=== PATIENT | female | born 1960 | race American Indian/Alaskan Native ===

== ENCOUNTER 2016-09-05 05:24 | Emergency (ER) | payer MEDICAID, OTHER ==
[2016-09-05 05:30] VITALS: BP 136/99
--- NOTE | 2016-09-05 05:35 | EDM.PDOC ---
ED HISTORY OF PRESENT ILLNESS - General Chief Complaint: Chest Pain Stated Complaint: IN BY AMBULANCE Time Seen by Provider: 09/05/16 05:25 Source of Information: Reports: Patient History Limitations: Reports: No limitations - History of Present Illness INITIAL COMMENTS - FREE TEXT/NARRATIVE: This 56 yo female patient was brought to the ED by [facility] due to chest pain. The patient reports that she woke up at about 0330 and had substernal chest pain. The patient reports her pain is "a sharp, dull pain in the middle of her chest. " The patient reports her pain is mostly gone at this time. The patient reports a history of htn and fibromyalgia. The patient did not take anything for her pain. EMS reports the patient was given aspirin (324 mg) and 1 dose of nitro. The patient now reports her pain is gone. 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, Nitroglycerin - Related Data Allergies/ADRs: Allergies Allergy/AdvReac Type Severity Reaction Status Date / Time glucosamine Allergy Cannot Verified 09/05/16 05:34 Remember tramadol Allergy Cannot Verified 09/05/16 05:34 Remember Home Meds: Home Meds Albuterol [Proventil HFA] 2 puff INH Q6HR PRN 10/21/13 [History] Fluticasone/Salmeterol [Advair 500-50] 1 puff INH BID 10/21/13 [History] Lisinopril 10 mg PO DAILY 10/21/13 [History] Omeprazole 20 mg PO DAILY 10/21/13 [History] Tiotropium [Spiriva] 1 puff INH DAILY 10/21/13 [History] Social & Family History - Tobacco Use Years of Tobacco use: 10 - Alcohol Use Days Per Week of Alcohol Use: 0 - Recreational Drug Use Recreational Drug Use: No Drug Use in Last 12 Months: No ED ROS GENERAL - Review of Systems Review Of Systems: ROS reveals no pertinent complaints other than HPI. ED EXAM, GENERAL - Physical Exam Exam: See Below Exam Limited By: No limitations General Appearance: alert, WD/WN, anxious, mild distress, obese Eye Exam: bilateral eye: EOMI, normal inspection, PERRL Ears: normal external exam, normal canal, hearing grossly normal, normal TMs Nose: normal inspection, normal mucosa, no blood Throat/Mouth: Normal inspection, Normal lips, Normal teeth, Normal gums, Normal oropharynx, Normal voice, No airway compromise Head: atraumatic, normocephalic Neck: normal inspection, supple, non-tender, full range of motion Respiratory/Chest: no respiratory distress, lungs clear, normal breath sounds, no accessory muscle use, other ([facility] patient reports generalized chest tenderness , but reports her fibromyalgia causes chronic chest pains. ) Cardiovascular: normal peripheral pulses, regular rate, rhythm, no edema, no gallop, no JVD, no murmur, no rub GI/Abdominal: normal bowel sounds, soft, non tender, no organomegaly, no distention, no abnormal bruit, no mass (Female) Exam: Deferred Rectal (Female) Exam: Deferred Back Exam: normal inspection, full range of motion, NT Extremities: normal inspection, normal range of motion, non-tender, normal capillary refill, no pedal edema Neurological: alert, oriented, CN II-XII intact, normal cognition, normal gait, normal reflexes, no motor/sensory deficits Psychiatric: anxious Skin Exam: Warm, Dry, Intact, Normal color, No rash Lymphatic: no adenopathy Course - Vital Signs Last Recorded V/S: Last Vital Signs Temp 35.5 C 09/05/16 05:24 Pulse 78 09/05/16 05:24 Resp 19 09/05/16 05:24 BP 136/99 H 09/05/16 05:24 Pulse Ox 99 09/05/16 05:24 - Orders/Labs/Meds Orders: Active Orders 24 hr Category Date Time Status EKG Documentation Completion [RC] URGENT Care 09/05/16 05:24 Active Labs: Laboratory Tests 09/05/16 09/05/16 09/05/16 Range/Units 05:35 05:35 05:40 WBC 9.8 (5.0-10.0) 10^3/uL RBC 4.68 (4.2-5.4) 10^6/uL Hgb 14.3 (12.0-16.0) g/dL Hct 43.2 (37.0-47.0) % MCV 92.3 (80-100) fL MCH 30.6 (27.0-34.0) pg MCHC 33.1 (33.0-35.0) g/dL Plt Count 373 (150-450) 10^3/uL Neut % (Auto) 68.3 (42.2-75.2) % Lymph % (Auto) 22.8 (20.5-50.1) % [place] % (Auto) 7.3 (2-8) % Eos % (Auto) 1.4 (1.0-3.0) % Baso % (Auto) 0.2 (0.0-1.0) % Sodium 138 (135-145) mmol/L Potassium 4.2 (3.6-5.0) mmol/L Chloride 105 (101-111) mmol/L Carbon Dioxide 23.0 (21.0-31.0) mmol/L Anion Gap 14.2 BUN 8 (7-18) mg/dL Creatinine 0.7 (0.6-1.3) mg/dL Est Cr Clr Drug Dosing 80.75 mL/min Estimated GFR (MDRD) > 60 BUN/Creatinine Ratio 11.42 Glucose 112 H (74-105) mg/dL Calcium 9.1 (8.4-10.2) mg/dl Total Bilirubin 0.4 (0.2-1.0) mg/dL AST 15 (10-42) IU/L ALT 12 (10-60) IU/L Alkaline Phosphatase 125 H (42-121) IU/L Troponin I < 0.02 (0.00-0.02) ng/ml Total Protein 7.4 (6.7-8.2) g/dl Albumin 4.0 (3.2-5.5) g/dl Globulin 3.4 Albumin/Globulin Ratio 1.18 Urine Color (YELLOW) Urine Appearance (CLEAR) Urine pH (5.0-9.0) Ur Specific [place] (1.005-1.030) Urine Protein (NEGATIVE) Urine Glucose (UA) (NEGATIVE) Urine Ketones (NEGATIVE) Urine Occult Blood (NEGATIVE) Urine Nitrite (NEGATIVE) Urine Bilirubin (NEGATIVE) Urine Urobilinogen (0.2-1.0) mg/dL Ur Leukocyte Esterase (NEGATIVE) Urine RBC /HPF Urine WBC (0-5/HPF) /HPF Ur Epithelial Cells /HPF Urine Bacteria (0-FEW/HPF) /HPF Urine Other Urine Opiates Screen Negative (NEGATIVE) Ur Oxycodone Screen Negative (NEGATIVE) Urine Methadone Screen Negative (NEGATIVE) Ur Barbiturates Screen Negative (NEGATIVE) U Tricyclic Antidepress Positive H (NEGATIVE) Ur Phencyclidine Scrn Negative (NEGATIVE) Ur Amphetamine Screen Negative (NEGATIVE) U Methamphetamines Scrn Negative (NEGATIVE) Urine MDMA Screen Negative (NEGATIVE) U Benzodiazepines Scrn Negative (NEGATIVE) Urine Cocaine Screen Negative (NEGATIVE) U Marijuana (THC) Screen Positive H (NEGATIVE) 09/05/16 Range/Units 05:40 WBC (5.0-10.0) 10^3/uL RBC (4.2-5.4) 10^6/uL Hgb (12.0-16.0) g/dL Hct (37.0-47.0) % MCV (80-100) fL MCH (27.0-34.0) pg MCHC (33.0-35.0) g/dL Plt Count (150-450) 10^3/uL Neut % (Auto) (42.2-75.2) % Lymph % (Auto) (20.5-50.1) % [place] % (Auto) (2-8) % Eos % (Auto) (1.0-3.0) % Baso % (Auto) (0.0-1.0) % Sodium (135-145) mmol/L Potassium (3.6-5.0) mmol/L Chloride (101-111) mmol/L Carbon Dioxide (21.0-31.0) mmol/L Anion Gap BUN (7-18) mg/dL Creatinine (0.6-1.3) mg/dL Est Cr Clr Drug Dosing mL/min Estimated GFR (MDRD) BUN/Creatinine Ratio Glucose (74-105) mg/dL Calcium (8.4-10.2) mg/dl Total Bilirubin (0.2-1.0) mg/dL AST (10-42) IU/L ALT (10-60) IU/L Alkaline Phosphatase (42-121) IU/L Troponin I (0.00-0.02) ng/ml Total Protein (6.7-8.2) g/dl Albumin (3.2-5.5) g/dl Globulin Albumin/Globulin Ratio Urine Color Yellow (YELLOW) Urine Appearance Slightly cloudy (CLEAR) Urine pH 6.5 (5.0-9.0) Ur Specific [place] 1.020 (1.005-1.030) Urine Protein Negative (NEGATIVE) Urine Glucose (UA) Negative (NEGATIVE) Urine Ketones Negative (NEGATIVE) Urine Occult Blood Trace-intact H (NEGATIVE) Urine Nitrite Negative (NEGATIVE) Urine Bilirubin Negative (NEGATIVE) Urine Urobilinogen 0.2 (0.2-1.0) mg/dL Ur Leukocyte Esterase Trace H (NEGATIVE) Urine RBC 0-5 /HPF Urine WBC 5-10 H (0-5/HPF) /HPF Ur Epithelial Cells Many H /HPF Urine Bacteria Moderate H (0-FEW/HPF) /HPF Urine Other See note Urine Opiates Screen (NEGATIVE) Ur Oxycodone Screen (NEGATIVE) Urine Methadone Screen (NEGATIVE) Ur Barbiturates Screen (NEGATIVE) U Tricyclic Antidepress (NEGATIVE) Ur Phencyclidine Scrn (NEGATIVE) Ur Amphetamine Screen (NEGATIVE) U Methamphetamines Scrn (NEGATIVE) Urine MDMA Screen (NEGATIVE) U Benzodiazepines Scrn (NEGATIVE) Urine Cocaine Screen (NEGATIVE) U Marijuana (THC) Screen (NEGATIVE) Departure - Departure Time of Disposition: 06:08 Disposition: Home, Self-Care 01 Condition: fair Clinical Impression: Non-cardiac chest pain Instructions: Nonspecific Chest Pain, [id number] Forms: ED Department Discharge Care Plan Goals: The patient was advised of the examination, EKG and lab results during the visit. The patient was encouraged to continue to monitor her symptoms. If the patient has any additional symptoms or concerns, the patient should either follow-up with her primary care facility or return to the emergency department. - My Orders Last 24 Hours: My Active Orders 09/05/16 05:24 EKG Documentation Completion [RC] URGENT - Assessment/Plan Last 24 Hours: My Active Orders 09/05/16 05:24 EKG Documentation Completion [RC] URGENT
[2016-09-05 05:58] LABS: CHLORIDE,CL 105 mmol/L (101-111); SODIUM,NA 138 mmol/L (135-145)
--- NOTE | 2016-09-05 11:46 | EKG ---
09/05/2016 - RADHAMES RUBI - TIME OF EK hours. I reviewed the EKG and agree with the machine's reading. [facility] /[id number]
== END 2016-09-05 06:25 | disposition home or self-care (01) ==
LOC: DL.ED 05:24
DX: R07.89 Other chest pain (principal); Z88.5 Allergy status to narcotic agent; Z88.8 Allergy status to other drugs, medicaments and biological substances; Z79.899 Other long term (current) drug therapy
CPT/HCPCS: 36415; 80053; 80305; 81001; 84484; 85025; 93005; 99285

== ENCOUNTER 2017-07-10 06:51 | Day surgery (SDC) | payer MEDICAID ==
[~2017-07-10 06:51] MED LIST: Dextrose 5%-0.45% NaCl 1,000 ML IV SCH; Midazolam 1 MG/ML 2 ML SDV ONE; Sodium Chloride 0.9% 10 ML Syringe FLUSH PRN; fentaNYL 100 MCG/2 ML SDV ONE
[2017-07-10] MEDS ORDERED: fentaNYL 100 MCG/2 ML SDV IV ONE ×2 (06:52→08:12)
[2017-07-10] MEDS ORDERED: Midazolam 1 MG/ML 2 ML SDV IV ONE ×4 (06:52→08:14)
--- NOTE | 2017-07-10 08:53 | OR ---
DATE: 07/10/2017 PROCEDURE: Esophagogastroduodenoscopy, NBI, and multiple pinch biopsies. INSTRUMENT USED: GIF-H180 Olympus video colonoscope. PREMEDICATIONS: Fentanyl 100 mcg intravenous, Versed 2 mg intravenous. Nasal O2 cannula. The procedure was done under pulse oximetry, BP recording, and cardiac cath tech. INDICATION: The patient with known Gentile's esophagus. Esophagogastroduodenoscopy is performed for surveillance pass to presence of dysplasia as well as malignancy, endoscopic hemostasis therapy if needed. DESCRIPTION OF PROCEDURE: The scope was passed with ease. Adequate visualization of the esophagus was made from proximal to distal areas. No upper esophageal lesions identified. No distal esophageal stricture. No uphill or downhill esophageal varices. No Gemma-Aguilar tear. No evidence of erosive esophagitis by [place] criteria. No esophageal polyp or tumor mass identified. Parmele columnar epithelium was noted at around 36 cm distal to the oral verge. Four-quadrant biopsies were taken from the pink columnar epithelium at 36 and 38 cm distal to the oral verge, and sent for pathologic evidence of dysplasia. No proximal gastric varices noted. Gastric fundus examination by retroflexion showed no polypoid lesions. No gastric ulcer, malignant mass, or vascular ectasia identified. Duodenal bulb showed no ulcer. Visualized second part of the duodenum was unremarkable. No bleeding was noted from any of the visualized areas at the completion of examination. Photographs were taken of the duodenal bulb, gastric antrum, fundus, as well as distal esophagus, including NBI views. IMPRESSION: Gentile's esophagus. The patient tolerated the procedure well. [facility] /[id number]
--- NOTE | 2017-07-10 09:47 | LETTER ---
07/10/2017 Alex Lee MD [facility] [address] [place] [address] RE: RADHAMES PAEZ : [address] Lee: Ms. Radhames Paez had esophagogastroduodenoscopy done this morning and she tolerated the procedure well. I herewith send a copy of the endoscopy note and photographs for your review. Thank you. Sincerely, [facility] /[id number]
[2017-07-10 10:38] VITALS: BP 115/74
== END 2017-07-10 10:45 | disposition home or self-care (01) ==
LOC: DL.ENDO 06:51
PROVIDERS: ATTEND Internal Medicine Gastroenterology
DX: K22.70 Barrett's esophagus without dysplasia (principal); I10 Essential (primary) hypertension; K21.9 Gastro-esophageal reflux disease without esophagitis; E66.9 Obesity, unspecified; Z88.8 Allergy status to other drugs, medicaments and biological substances
CPT/HCPCS: 43239; J2250; J3010; J7042

== ENCOUNTER 2017-10-29 13:54 | Emergency (ER) | payer MEDICAID, OTHER ==
[2017-10-29 14:13] VITALS: BP 127/79
--- NOTE | 2017-10-29 14:36 | CR ---
CLINICAL HISTORY: 57-year-old female injured left ankle ("stepped in hole"). Pain. INTERPRETATION: Mild bimalleolar soft tissue swelling and small ankle joint effusion. No sign of acute left ankle fracture or disruption of the tibiotalar mortise joint symmetric. Large heel spur at the insertion plantar aponeurosis base of the os calcis. CONCLUSION: Ankle sprain. No fractures.
--- NOTE | 2017-10-29 14:37 | CR ---
CLINICAL HISTORY: 57-year-old female injured left foot ("stepped in hole"). INTERPRETATION: Ankle joint effusion but no sign of left foot fracture or dislocation (bipartite sesamoid beneath the head of the first metatarsal). No foreign bodies. Large heel spur at the insertion plantar aponeurosis base of the os calcis.
--- NOTE | 2017-10-29 15:27 | EDM.PDOC ---
ED HPI GENERAL MEDICAL PROBLEM - General Chief Complaint: Lower Extremity Injury/Pain Stated Complaint: IN BY [facility] Time Seen by Provider: 10/29/17 15:21 Source of Information: Reports: Patient History Limitations: Reports: No Limitations - History of Present Illness INITIAL COMMENTS - FREE TEXT/NARRATIVE: This 57 yo female patient was brought to the ED by [facility] due to left ankle pain. The patient reports that she stepped in a hole and hurt her ankle. The patient reports she has not been able to walk on her foot since the incident. Onset: Today Duration: Minutes:, Constant Location: Reports: Lower Extremity, Left Quality: Reports: Ache, Sharp Severity: Moderate Improves with: Reports: None Worsens with: Reports: None Context: Reports: Activity Associated Symptoms: Reports: No Other Symptoms Left Ankle Pain Score (Numeric/FACES): 10 - Related Data Allergies Allergy/AdvReac Type Severity Reaction Status Date / Time glucosamine Allergy Other Verified 10/29/17 14:00 hydrocodone Allergy Hives Verified 10/29/17 14:00 tramadol Allergy Itching Verified 10/29/17 14:00 Home Meds: Home Meds Albuterol [Proventil HFA] 2 puff INH Q6HR PRN 10/21/13 [History] Lisinopril 10 mg PO DAILY 10/21/13 [History] Tiotropium [Spiriva] 1 puff INH DAILY 10/21/13 [History] Cetirizine [ZyrTEC] 10 mg PO DAILY 07/08/17 [History] Cyclobenzaprine [Flexeril] 10 mg PO DAILY 07/08/17 [History] Losartan Potassium 25 mg PO DAILY 07/08/17 [History] Mometasone/Formoterol [Dulera 200 MCG/5 MCG] 1 puff INH DAILY 07/08/17 [History] Olopatadine [Patanol 0.1% Ophth Soln] 1 drop EYEBOTH BID 07/08/17 [History] Pregabalin [Lyrica] 150 mg PO BEDTIME 07/08/17 [History] Pregabalin [Lyrica] 300 mg PO DAILY 07/08/17 [History] atorvaSTATin [Lipitor] 20 mg PO BEDTIME 07/08/17 [History] Pantoprazole [ProTONIX] 40 mg PO BID 02/09/18 [History] Past Medical History Cardiovascular History: Reports: High Cholesterol, Hypertension Respiratory History: Reports: Asthma Gastrointestinal History: Reports: Diverticulosis, GERD, Hemorrhoids, Other ( See Below) Other Gastrointestinal History: NAJERA'S ESOPHAGUS Genitourinary History: Reports: Renal Calculus 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 CHRONIC CERVICALGIA. MULTILEVEL FACET ARTHROPATHY CERVICAL. NUMBNESS AND TINGLING IN BILAT HANDS Neurological History: Reports: Concussion Psychiatric History: Reports: Anxiety, Depression Endocrine/Metabolic History: Reports: Obesity/BMI 30+ Hematologic History: Reports: None Immunologic History: Reports: None Oncologic (Cancer) History: Reports: None Dermatologic History: Reports: Psoriasis Other Dermatologic History: 07/2017 PATIENT REPORTS PSORASIS HEALED - Infectious Disease History Infectious Disease History: Reports: None - Past Surgical History Head Surgeries/Procedures: Reports: None HEENT Surgical History: Reports: Tonsillectomy Cardiovascular Surgical History: Reports: None Respiratory Surgical History: Reports: None GI Surgical History: Reports: Colonoscopy, EGD Female Surgical History: Reports: Other (See Below) Other Female Surgeries/Procedures: S/P REMOVAL OF KIDNEY STONE FROM LEFT KIDNEY, INCISIONAL Endocrine Surgical History: Reports: None Neurological Surgical History: Reports: None Musculoskeletal Surgical History: Reports: None Oncologic Surgical History: Reports: None Dermatological Surgical History: Reports: None Social & Family History - Tobacco Use Smoking Status *Q: Current Every Day Smoker Years of Tobacco use: 6 Packs/Tins Daily: 0.2 - Caffeine Use Caffeine Use: Reports: Coffee, Soda, Tea Other Caffeine Use: AVERAGE OF 4 CUPS OF COFFEE - Recreational Drug Use Recreational Drug Use: No Review of Systems - Review of Systems Review Of Systems: ROS reveals no pertinent complaints other than HPI. ED EXAM, GENERAL - Physical Exam Exam: See Below Exam Limited By: No Limitations General Appearance: Alert, WD/WN, Mild Distress, Obese Eye Exam: Bilateral Eye: EOMI, Normal Inspection, PERRL Ears: Normal External Exam, Normal Canal, Hearing Grossly Normal, Normal TMs Nose: Normal Inspection, Normal Mucosa, No Blood Throat/Mouth: Normal Inspection, Normal Lips, Normal Teeth, Normal Gums, Normal Oropharynx, Normal Voice, No Airway Compromise Head: Atraumatic, Normocephalic Neck: Normal Inspection, Supple, Non-Tender, Full Range of Motion Respiratory/Chest: No Respiratory Distress, Lungs Clear, Normal Breath Sounds, No Accessory Muscle Use, Chest Non-Tender Cardiovascular: Normal Peripheral Pulses, Regular Rate, Rhythm, No Edema, No Gallop, No JVD, No Murmur, No Rub GI/Abdominal: Normal Bowel Sounds, Soft, Non-Tender, No Organomegaly, No Distention, No Abnormal Bruit, No Mass (Female) Exam: Deferred Rectal (Female) Exam: Deferred Extremities: Leg Pain (left lateral ankle and foot tenderness) Neurological: Alert, Oriented, CN II-XII Intact, Normal Cognition, Normal Gait, Normal Reflexes, No Motor/Sensory Deficits Psychiatric: Normal Affect, Normal Mood Skin Exam: Warm, Dry, Intact, Normal Color, No Rash Lymphatic: No Adenopathy Course - Vital Signs Last Recorded V/S: Last Vital Signs Temp 36.6 C 10/29/17 14:11 Pulse 83 10/29/17 14:11 Resp 16 10/29/17 14:11 BP 127/79 10/29/17 14:11 Pulse Ox 94 L 10/29/17 14:11 - Orders/Labs/Meds Orders: Active Orders 24 hr Category Date Time Status DME for Discharge [COMM] Urgent Oth 10/29/17 15:27 Ordered Departure - Departure Time of Disposition: 15:28 Disposition: Home, Self-Care 01 Condition: Fair Clinical Impression: Left ankle sprain Qualifiers: Encounter type: initial encounter Involved ligament of ankle: unspecified ligament Qualified Code(s): S93.402A - Sprain of unspecified ligament of left ankle, initial encounter - Discharge Information Instructions: Ankle Sprain, [id number] Forms: ED Department Discharge Care Plan Goals: The patient was advised of the examination and x-ray results during the visit. The patient was placed in a walking boot and given a set of crutches to help her ambulate. The patient was encouraged to rest, ice and elevate the area of pain. If the patient has any additional symptoms or concerns, the patient should follow-up with her primary care facility or return to the emergency department. - My Orders Last 24 Hours: My Active Orders 10/29/17 15:27 DME for Discharge [COMM] Urgent - Assessment/Plan Last 24 Hours: My Active Orders 05/31/18 15:27 DME for Discharge [COMM] Urgent
== END 2017-10-29 15:40 | disposition home or self-care (01) ==
LOC: DL.ED 13:54
DX: S93.402A Sprain of unspecified ligament of left ankle, initial encounter (principal); I10 Essential (primary) hypertension; E66.9 Obesity, unspecified; F17.210 Nicotine dependence, cigarettes, uncomplicated; Z88.8 Allergy status to other drugs, medicaments and biological substances; Z79.899 Other long term (current) drug therapy; X50.9XXA Other and unspecified overexertion or strenuous movements or postures, initial encounter
CPT/HCPCS: 73610-LT; 73630-LT; 99284

== ENCOUNTER 2017-11-06 15:42 | Emergency (ER) | payer MEDICAID, OTHER ==
[2017-11-06 16:10] VITALS: BP 107/53
--- NOTE | 2017-11-06 16:31 | EDM.PDOC ---
ED HPI GENERAL MEDICAL PROBLEM - General Chief Complaint: Back Pain or Injury Stated Complaint: BACK PAIN Time Seen by Provider: 11/06/17 16:31 Source of Information: Reports: Patient, EMS, Family, Old Records, RN, RN Notes Reviewed History Limitations: Reports: No Limitations - History of Present Illness INITIAL COMMENTS - FREE TEXT/NARRATIVE: Arrives from home by ambulance with c/o low back pain radiating down right leg to the knee. Pt states that about 1 week ago she had 2 ground level falls, and since that time her back pain has worsened. Hx of chronic neck, and some back pains per pt. Today she was seen at [facility] and received Toradol and Vistaril IM injections which provided no relief at all. Pt denies saddle area numbness, loss of bowel or bladder control, or motor weakness. Onset: Gradual Duration: Constant, Getting Worse Location: Reports: Back, Lower Extremity, Right Quality: Reports: Ache, Sharp Severity: Severe Improves with: Reports: Immobilization (sitting upright) Worsens with: Reports: Movement Associated Symptoms: Reports: No Other Symptoms Treatments AUDIT TECH: Reports: Other Medication(s) Back Pain Score (Numeric/FACES): 10 - Related Data Allergies Allergy/AdvReac Type Severity Reaction Status Date / Time glucosamine Allergy Other Verified 10/29/17 14:00 hydrocodone Allergy Hives Verified 10/29/17 14:00 tramadol Allergy Itching Verified 10/29/17 14:00 Home Meds: Home Meds Albuterol [Proventil HFA] 2 puff INH Q6HR PRN 10/21/13 [History] Lisinopril 10 mg PO DAILY 10/21/13 [History] Tiotropium [Spiriva] 1 puff INH DAILY 10/21/13 [History] Cetirizine [ZyrTEC] 10 mg PO DAILY 07/08/17 [History] Cyclobenzaprine [Flexeril] 10 mg PO DAILY 07/08/17 [History] Losartan Potassium 25 mg PO DAILY 07/08/17 [History] Mometasone/Formoterol [Dulera 200 MCG/5 MCG] 1 puff INH DAILY 07/08/17 [History] Olopatadine [Patanol 0.1% Ophth Soln] 1 drop EYEBOTH BID 07/08/17 [History] Pregabalin [Lyrica] 150 mg PO BEDTIME 07/08/17 [History] Pregabalin [Lyrica] 300 mg PO DAILY 07/08/17 [History] atorvaSTATin [Lipitor] 20 mg PO BEDTIME 07/08/17 [History] Pantoprazole [ProTONIX] 40 mg PO BID 07/10/17 [History] Past Medical History Cardiovascular History: Reports: High Cholesterol, Hypertension Respiratory History: Reports: Asthma Gastrointestinal History: Reports: Diverticulosis, GERD, Hemorrhoids, Other ( See Below) Other Gastrointestinal History: NAJERA'S ESOPHAGUS Genitourinary History: Reports: Renal Calculus BATTER OUT History: Reports: Musculoskeletal History: Reports: Arthritis, Fibromyalgia, Neck Pain, Chronic Other Musculoskeletal History: HX OF BRACHIAL NEURITIS OR RADICULITIS. CHRONIC CERVICALGIA. MULTILEVEL FACET ARTHROPATHY CERVICAL. NUMBNESS AND TINGLING IN BILAT HANDS Neurological History: Reports: Concussion Psychiatric History: Reports: Anxiety, Depression Endocrine/Metabolic History: Reports: Obesity/BMI 30+ Hematologic History: Reports: None Immunologic History: Reports: None Oncologic (Cancer) History: Reports: None Dermatologic History: Reports: Psoriasis Other Dermatologic History: 07/2017 PATIENT REPORTS PSORASIS HEALED - Infectious Disease History Infectious Disease History: Reports: None - Past Surgical History Head Surgeries/Procedures: Reports: None HEENT Surgical History: Reports: Tonsillectomy Cardiovascular Surgical History: Reports: None Respiratory Surgical History: Reports: None GI Surgical History: Reports: Colonoscopy, EGD Female Surgical History: Reports: Other (See Below) Other Female Surgeries/Procedures: S/P REMOVAL OF KIDNEY STONE FROM LEFT KIDNEY, INCISIONAL Endocrine Surgical History: Reports: None Neurological Surgical History: Reports: None Musculoskeletal Surgical History: Reports: None Other Musculoskeletal Surgeries/Procedures:: on arrival pt wears a splint on the right wrist and a walking boot on the left foot Oncologic Surgical History: Reports: None Dermatological Surgical History: Reports: None Social & Family History - Tobacco Use Smoking Status *Q: Current Every Day Smoker Years of Tobacco use: 20 Packs/Tins Daily: 0.5 - Caffeine Use Caffeine Use: Reports: Coffee, Soda, Tea Other Caffeine Use: AVERAGE OF 4 CUPS OF COFFEE - Recreational Drug Use Recreational Drug Use: No - Living Situation & Occupation Living situation: Reports: with Family ED ROS GENERAL - Review of Systems Review Of Systems: ROS reveals no pertinent complaints other than HPI. ED EXAM,LOWER BACK PAIN/INJURY - Physical Exam Exam: See Below Exam Limited By: No Limitations General Appearance: Alert, WD/WN, No Apparent Distress Throat/Mouth: Normal Voice Head: Atraumatic, Normocephalic Neck: Normal Inspection, Full Range of Motion Respiratory/Chest: No Respiratory Distress, No Accessory Muscle Use, Decreased Breath Sounds (course breath sounds) Cardiovascular: Regular Rate, Rhythm, No Edema GI/Abdominal: Normal Bowel Sounds, Soft, Non-Tender, No Distention, No Abnormal Bruit. No: Guarding, Rigid, Rebound (Female) Exam: Deferred Rectal (Female) Exam: Deferred Back Exam: Decreased Range of Motion (lumbar, L/S), Muscle Spasm, Paraspinal Tenderness. No: CVA Tenderness (L), CVA Tenderness (R), Vertebral Tenderness Extremities: Normal Inspection, Normal Range of Motion, Non-Tender, No Pedal Edema, Normal Capillary Refill Neurological: Alert, Normal Mood/Affect, Normal Dorsiflexion, CN II-XII Intact, Normal Plantar Flexion, No Motor/Sensory Deficits, Oriented x 3 Psychiatric: Normal Affect, Normal Mood Skin Exam: Warm, Dry, Intact, Normal Color, No Rash Course - Vital Signs Last Recorded V/S: Last Vital Signs Temp 36.4 C 11/06/17 16:09 Pulse 76 11/06/17 16:09 Resp 16 11/06/17 16:09 BP 107/53 L 11/06/17 16:09 Pulse Ox 94 L 11/06/17 16:09 - Orders/Labs/Meds Labs: Laboratory Tests 11/06/17 11/06/17 Range/Units 16:36 16:36 Urine Color Yellow (YELLOW) Urine Appearance Slightly cloudy (CLEAR) Urine pH 8.5 (5.0-9.0) Ur Specific [place] 1.015 (1.005-1.030) Urine Protein Negative (NEGATIVE) Urine Glucose (UA) Negative (NEGATIVE) Urine Ketones Negative (NEGATIVE) Urine Occult Blood Negative (NEGATIVE) Urine Nitrite Negative (NEGATIVE) Urine Bilirubin Negative (NEGATIVE) Urine Urobilinogen 0.2 (0.2-1.0) mg/dL Ur Leukocyte Esterase Negative (NEGATIVE) Urine RBC 0-5 /HPF Urine WBC 0-5 (0-5/HPF) /HPF Ur Epithelial Cells Rare /HPF Amorphous Sediment Few (0/HPF) /HPF Urine Bacteria Rare (0-FEW/HPF) /HPF Urine Mucus Few H /LPF Urine Opiates Screen Negative (NEGATIVE) Ur Oxycodone Screen Negative (NEGATIVE) Urine Methadone Screen Negative (NEGATIVE) Ur Barbiturates Screen Negative (NEGATIVE) U Tricyclic Antidepress Positive H (NEGATIVE) Ur Phencyclidine Scrn Negative (NEGATIVE) Ur Amphetamine Screen Negative (NEGATIVE) U Methamphetamines Scrn Negative (NEGATIVE) Urine MDMA Screen Negative (NEGATIVE) U Benzodiazepines Scrn Negative (NEGATIVE) Urine Cocaine Screen Negative (NEGATIVE) U Marijuana (THC) Screen Positive H (NEGATIVE) Meds: Medications Discontinued Medications Generic Name Dose Route Start Last Admin Trade Name Freq PRN Reason Stop Dose Admin Dexamethasone 8 mg 11/06/17 16:56 11/06/17 17:06 Dexamethasone IM 11/06/17 16:57 8 mg ONETIME ONE Administration Orphenadrine Citrate 60 mg 11/06/17 16:58 11/06/17 17:07 Norflex IM 11/06/17 16:59 60 mg ONETIME ONE Administration - Radiology Interpretation Free Text/Narrative:: [facility] Final Radiology Report Call: [phone] assistance Online chat: [email or web address] Name: RADHAMES RUBI Age: 57Years F Date: 11/06/2017 SSN: -- : 1960 Study: CT SPINE LUMBAR WO Requesting Physician: LILIAN MARINO Images: [id number] Addl Studies: Provided Clinical History: Contrast: Without Contrast Medium: Contrast Amount: Contrast Method: CONFIDENTIALITY STATEMENT This report is intended only for use by the referring physician, and only in accordance with law. If you received this in error, call [phone]. Page 1 of 1 EXAM: CT Lumbar Spine Without Intravenous Contrast CLINICAL HISTORY: 57 years old, female; Signs and symptoms; Other: Fall x2 with severe low back pain radiating to right knee--no loss of bowel or bladder TECHNIQUE: Axial computed tomography images of the lumbar spine without intravenous contrast. All CT scans at this facility use one or more dose reduction techniques, viz.: automated exposure control; ma/kV adjustment per patient size (including targeted exams where dose is matched to indication; i.e. head); or iterative reconstruction technique. Coronal and sagittal reformatted images were created and reviewed. COMPARISON: No relevant prior studies available. FINDINGS: Vertebrae: Vertebral body heights preserved. No acute fracture. Discs/spinal canal/neural foramina: There are mild degenerative changes in the lower lumbar spine. No spinal canal stenosis. Soft tissues: Unremarkable. IMPRESSION: No acute findings. Thank you for allowing us to participate in the care of your patient. Dictated and Authenticated by: Eduar Ferguson MD 11/06/2017 5:48 PM Central Time ([place] & [place]) Departure - Departure Time of Disposition: 18:12 Disposition: Home, Self-Care 01 Condition: Fair Clinical Impression: Right lumbar radiculopathy Acute low back pain Qualifiers: Back pain laterality: bilateral Sciatica presence: with sciatica Sciatica laterality: sciatica of right side Qualified Code(s): M54.41 - Lumbago with sciatica, right side - Discharge Information Instructions: Back Pain, Adult, [id number], Lumbosacral Radiculopathy Forms: ED Department Discharge Additional Instructions: Rx: Decadron (Dexamethasone) 4mg Rx: Norflex (Orphenadrine) 100mg Do not take your cyclobenzaprine while taking the Norflex. If your insurance will not cover Norflex, go ahead and take the cyclobenzaprine. Follow up in clinic next week for recheck by your doctor.
[2017-11-06] MEDS ORDERED: Dexamethasone 4 MG/ML SDV IM ONE (16:56)
== END 2017-11-06 18:45 | disposition home or self-care (01) ==
LOC: DL.ED 15:42
DX: M54.16 Radiculopathy, lumbar region (principal); M54.41 Lumbago with sciatica, right side; E78.00 Pure hypercholesterolemia, unspecified; I10 Essential (primary) hypertension; K21.9 Gastro-esophageal reflux disease without esophagitis; F17.210 Nicotine dependence, cigarettes, uncomplicated; Z88.8 Allergy status to other drugs, medicaments and biological substances; Z88.5 Allergy status to narcotic agent; Z79.899 Other long term (current) drug therapy
CPT/HCPCS: 72131; 80305; 81001; 96372; 99284; J1100; J2360

== ENCOUNTER 2021-06-15 09:20 | Inpatient (IN) | payer MEDICARE, MEDICAID ==
[2021-06-15] MEDS ORDERED: Acetaminophen 500 MG Tab PO ONE (09:48)
[2021-06-15 10:25] LABS: CORONAVIRUS COVID-19 NAA NEGATIVE (NEGATIVE)
[2021-06-15] MEDS ORDERED: cefTRIAXone 1 GM in Sodium Chloride 0.9% 50 ML IV ONE (10:33)
[2021-06-15 10:34] LABS: ANION GAP 14.2 mEq/L (7-13); CHLORIDE,CL 93 mmol/L (98-107); SODIUM,NA 133 mmol/L (136-145)
[2021-06-15] MEDS ORDERED: Albuterol/Ipratropium 3.0-0.5 MG/3 ML Neb Soln NEB ONE (10:37)
[2021-06-15] MEDS ORDERED: methylPREDNISolone Sodium Succinate 125 MG/2 ML SDV IVPUSH ONE (10:37)
[2021-06-15] MEDS ORDERED: Azithromycin 500 MG in Sodium Chloride 0.9% 250 ML IV ONE (10:37)
[2021-06-15] MEDS ORDERED: Polyethylene Glycol 3350 Powder 17 GM Packet PO PRN (13:45)
[2021-06-15] MEDS ORDERED: Ondansetron 4 MG/2 ML SDV IVPUSH PRN (13:45)
[2021-06-15] MEDS ORDERED: Bisacodyl 5 MG Tab PO PRN (13:45)
[2021-06-15] MEDS ORDERED: Metoprolol Tartrate 5 MG/5 ML SDV IVPUSH PRN (13:51)
[2021-06-15] MEDS ORDERED: hydrALAZINE 20 MG/ML SDV IVPUSH PRN (13:51)
[2021-06-15] MEDS ORDERED: Nicotine 21 MG/24 Hr Patch TRDERM PRN (13:51)
[2021-06-15] MEDS ORDERED: guaiFENesin/Dextromethorphan 100-10 MG/5 ML Soln 5 ML Cup PO ONE (13:51)
[2021-06-15] MEDS ORDERED: Albuterol 6.7 GM Inhaler INH PRN (13:52)
[2021-06-15] MEDS ORDERED: Magnesium Sulfate/Water 2 GM in Premix Bag 1 BAG IV ONE (14:06)
[2021-06-15] MEDS ORDERED: Potassium Chloride 10 MEQ Tab.ER PO ONE (14:06)
[2021-06-15] MEDS ORDERED: Oseltamivir 75 MG Cap PO ONE (14:06)
[2021-06-15] MEDS: Sodium Chloride 0.9% 1,000 ML IV SCH (16:39)
[2021-06-15] MEDS: methylPREDNISolone Sodium Succinate 125 MG/2 ML SDV IVPUSH SCH (18:56)
[2021-06-15] MEDS: Pantoprazole 40 MG Tab.CR PO SCH (20:10)
[2021-06-15] MEDS: atorvaSTATin 20 MG Tab PO SCH (20:10)
[2021-06-15] MEDS: Oseltamivir 30 MG Cap PO SCH (20:10)
[2021-06-15] MEDS: Albuterol/Ipratropium 3.0-0.5 MG/3 ML Neb Soln NEB PRN (20:13)
[2021-06-15] MEDS: Zolpidem 5 MG Tab PO PRN (20:19)
[2021-06-15] MEDS: Nystatin Topical Powder 30 GM Bottle TOP SCH (20:20)
[2021-06-15] MEDS ORDERED: Oseltamivir 75 MG Cap PO SCH (21:00)
[2021-06-16] MEDS: methylPREDNISolone Sodium Succinate 125 MG/2 ML SDV IVPUSH SCH ×3 (02:32→18:11)
[2021-06-16] MEDS: Pantoprazole 40 MG Tab.CR PO SCH ×2 (05:05→20:01)
[2021-06-16] MEDS: Sodium Chloride 0.9% 1,000 ML IV SCH (06:30)
[2021-06-16 06:47] LABS: ANION GAP 18.3 mEq/L (7-13); CHLORIDE,CL 97 mmol/L (98-107); SODIUM,NA 137 mmol/L (136-145)
[2021-06-16] MEDS ORDERED: Cyclobenzaprine 10 MG Tab PO SCH (09:00)
[2021-06-16] MEDS: Losartan 25 MG Tab PO SCH (09:28)
[2021-06-16] MEDS: Oseltamivir 30 MG Cap PO SCH ×2 (09:28→20:01)
[2021-06-16] MEDS: DULoxetine 30 MG Cap PO SCH (09:28)
[2021-06-16] MEDS: Tiotropium Inhaler 18 MCG Inhalation Powder Cap Kit of 5 INH SCH (09:29)
[2021-06-16] MEDS: Nystatin Topical Powder 30 GM Bottle TOP SCH ×3 (09:31→20:00)
[2021-06-16] MEDS: cefTRIAXone 1 GM in Sodium Chloride 0.9% 50 ML IV SCH (09:32)
[2021-06-16] MEDS: CETIRIZINE 10 MG PO SCH (09:35)
[2021-06-16] MEDS: Albuterol/Ipratropium 3.0-0.5 MG/3 ML Neb Soln NEB PRN ×2 (10:18→19:50)
[2021-06-16] MEDS: guaiFENesin/Dextromethorphan 100-10 MG/5 ML Soln 5 ML Cup PO PRN ×2 (10:36→13:59)
[2021-06-16] MEDS: Azithromycin 500 MG in Sodium Chloride 0.9% 250 ML IV SCH (11:21)
[2021-06-16] MEDS: Acetaminophen 325 MG Tab PO PRN (15:17)
[2021-06-16] MEDS: atorvaSTATin 20 MG Tab PO SCH (20:00)
[2021-06-16] MEDS: Cyclobenzaprine 10 MG Tab PO SCH (20:01)
[2021-06-16] MEDS: Codeine/guaiFENesin 10-100 MG/5 ML Syrup 5 ML Cup PO PRN (20:23)
[2021-06-16] MEDS: Zolpidem 5 MG Tab PO PRN (23:22)
[2021-06-17] MEDS: methylPREDNISolone Sodium Succinate 125 MG/2 ML SDV IVPUSH SCH ×2 (02:55→12:30)
[2021-06-17] MEDS: Pantoprazole 40 MG Tab.CR PO SCH ×2 (05:23→20:26)
[2021-06-17 06:59] LABS: ANION GAP 16.5 mEq/L (7-13); CHLORIDE,CL 103 mmol/L (98-107); SODIUM,NA 141 mmol/L (136-145)
[2021-06-17] MEDS: Codeine/guaiFENesin 10-100 MG/5 ML Syrup 5 ML Cup PO PRN ×3 (08:31→19:19)
[2021-06-17] MEDS: cefTRIAXone 1 GM in Sodium Chloride 0.9% 50 ML IV SCH (09:02)
[2021-06-17] MEDS: Oseltamivir 30 MG Cap PO SCH ×2 (09:05→20:26)
[2021-06-17] MEDS: DULoxetine 30 MG Cap PO SCH (09:06)
[2021-06-17] MEDS: Acetaminophen 325 MG Tab PO PRN ×2 (09:07→20:25)
[2021-06-17] MEDS: Losartan 25 MG Tab PO SCH (09:11)
[2021-06-17] MEDS: CETIRIZINE 10 MG PO SCH (09:13)
[2021-06-17] MEDS: Tiotropium Inhaler 18 MCG Inhalation Powder Cap Kit of 5 INH SCH (09:15)
[2021-06-17] MEDS: Nystatin Topical Powder 30 GM Bottle TOP SCH ×3 (09:16→20:32)
[2021-06-17] MEDS ORDERED: Bisacodyl 10 MG Supp RECTAL PRN (10:12)
[2021-06-17] MEDS ORDERED: Furosemide 20 MG/2 ML VIAL IVPUSH ONE (10:45)
[2021-06-17] MEDS: Azithromycin 500 MG in Sodium Chloride 0.9% 250 ML IV SCH (12:57)
[2021-06-17] MEDS: Albuterol/Ipratropium 3.0-0.5 MG/3 ML Neb Soln NEB PRN ×2 (14:17→19:06)
[2021-06-17] MEDS: Magnesium Hydroxide 400 MG/5 ML Susp 30 ML Cup PO PRN (16:33)
[2021-06-17] MEDS: Sodium Chloride 0.9% 10 ML Syringe FLUSH PRN (18:08)
[2021-06-17] MEDS: methylPREDNISolone Sodium Succinate 40 MG/1 ML SDV IVPUSH SCH (18:08)
[2021-06-17] MEDS: Docusate Sodium 100 MG Cap PO PRN (20:25)
[2021-06-17] MEDS: Cyclobenzaprine 10 MG Tab PO SCH (20:26)
[2021-06-17] MEDS: atorvaSTATin 20 MG Tab PO SCH (20:27)
[2021-06-17] MEDS: Zolpidem 5 MG Tab PO PRN (20:28)
[2021-06-18] MEDS: methylPREDNISolone Sodium Succinate 40 MG/1 ML SDV IVPUSH SCH ×3 (02:05→18:26)
[2021-06-18] MEDS: Pantoprazole 40 MG Tab.CR PO SCH ×2 (05:33→20:33)
[2021-06-18] MEDS: Albuterol/Ipratropium 3.0-0.5 MG/3 ML Neb Soln NEB PRN ×2 (05:33→08:11)
[2021-06-18] MEDS: Codeine/guaiFENesin 10-100 MG/5 ML Syrup 5 ML Cup PO PRN (05:42)
[2021-06-18 07:09] LABS: ANION GAP 15.5 mEq/L (7-13); CHLORIDE,CL 100 mmol/L (98-107); SODIUM,NA 141 mmol/L (136-145)
[2021-06-18] MEDS: Acetaminophen 325 MG Tab PO PRN (07:24)
[2021-06-18 08:21] LABS: O2 DELIVERY DEVICE NASAL CANNULA
[2021-06-18] MEDS: Losartan 25 MG Tab PO SCH (08:47)
[2021-06-18] MEDS: DULoxetine 30 MG Cap PO SCH (08:48)
[2021-06-18] MEDS: Oseltamivir 30 MG Cap PO SCH ×2 (08:48→20:34)
[2021-06-18] MEDS: Furosemide 20 MG/2 ML VIAL IVPUSH SCH ×2 (08:49→14:15)
[2021-06-18] MEDS: CETIRIZINE 10 MG PO SCH (08:53)
[2021-06-18] MEDS: Nystatin Topical Powder 30 GM Bottle TOP SCH ×3 (08:55→23:57)
[2021-06-18] MEDS: Tiotropium Inhaler 18 MCG Inhalation Powder Cap Kit of 5 INH SCH (09:05)
[2021-06-18] MEDS: cefTRIAXone 1 GM in Sodium Chloride 0.9% 50 ML IV SCH (10:46)
[2021-06-18] MEDS: Albuterol/Ipratropium 3.0-0.5 MG/3 ML Neb Soln NEB SCH ×4 (10:57→23:56)
[2021-06-18] MEDS: Enoxaparin 40 MG/0.4 ML Syringe SUBCUT SCH (10:57)
[2021-06-18] MEDS: Azithromycin 500 MG in Sodium Chloride 0.9% 250 ML IV SCH (11:31)
[2021-06-18] MEDS: ALPRAZolam 0.5 MG Tab PO PRN (11:37)
[2021-06-18 15:13] LABS: PCO2 ARTERIAL 51 mmHg (35-48)
[2021-06-18 15:14] LABS: ALLEN TEST POSITIVE
[2021-06-18 15:21] LABS: PO2 ARTERIAL 42 mmHg (83-108)
[2021-06-18 18:53] LABS: O2 DELIVERY DEVICE HI FLOW NASAL CANNU
[2021-06-18 19:02] LABS: PCO2 ARTERIAL 47 mmHg (35-45)
[2021-06-18 19:03] LABS: ALLEN TEST POSITIVE; BASE EXCESS ARTERIAL 6 mmol/L ((-2)-(+3)); BICARBONATE,ARTERIAL 30.7 mmol/L (22-26); O2 FLOW RATE 40; O2 SATURATION ARTERIAL 97 % (95-100); PO2 ARTERIAL 86 mmHg (70-100)
[2021-06-18] MEDS: Cyclobenzaprine 10 MG Tab PO SCH (20:33)
[2021-06-18] MEDS: Zolpidem 5 MG Tab PO PRN (20:34)
[2021-06-18] MEDS: atorvaSTATin 20 MG Tab PO SCH (20:34)
[2021-06-19] MEDS: Budesonide 0.5 MG/2 ML Neb Susp NEB SCH ×3 (00:31→18:33)
[2021-06-19] MEDS: methylPREDNISolone Sodium Succinate 40 MG/1 ML SDV IVPUSH SCH ×3 (02:38→17:03)
[2021-06-19] MEDS: Albuterol/Ipratropium 3.0-0.5 MG/3 ML Neb Soln NEB SCH ×6 (02:38→22:26)
[2021-06-19] MEDS: Pantoprazole 40 MG Tab.CR PO SCH ×2 (05:48→20:36)
[2021-06-19 06:23] LABS: ANION GAP 10.7 mEq/L (7-13); CHLORIDE,CL 100 mmol/L (98-107); SODIUM,NA 139 mmol/L (136-145)
[2021-06-19] MEDS: cefTRIAXone 1 GM in Sodium Chloride 0.9% 50 ML IV SCH ×2 (08:45→12:08)
[2021-06-19] MEDS: Furosemide 20 MG/2 ML VIAL IVPUSH SCH ×2 (09:50→15:26)
[2021-06-19] MEDS: Losartan 25 MG Tab PO SCH (09:55)
[2021-06-19] MEDS: DULoxetine 30 MG Cap PO SCH (09:56)
[2021-06-19] MEDS: Oseltamivir 30 MG Cap PO SCH ×2 (09:57→20:36)
[2021-06-19] MEDS: CETIRIZINE 10 MG PO SCH (09:58)
[2021-06-19] MEDS: Tiotropium Inhaler 18 MCG Inhalation Powder Cap Kit of 5 INH SCH (10:01)
[2021-06-19] MEDS: Enoxaparin 40 MG/0.4 ML Syringe SUBCUT SCH (10:02)
[2021-06-19] MEDS: Nystatin Topical Powder 30 GM Bottle TOP SCH ×3 (10:04→21:43)
[2021-06-19] MEDS: Azithromycin 500 MG in Sodium Chloride 0.9% 250 ML IV SCH (12:42)
[2021-06-19] MEDS ORDERED: Mineral Oil/Petrolatum/Phenylephrine/Shark Liver Oil Oint 57 GM Tube RECTAL PRN (15:00)
[2021-06-19] MEDS: ALPRAZolam 0.5 MG Tab PO PRN (17:03)
[2021-06-19] MEDS: atorvaSTATin 20 MG Tab PO SCH (20:36)
[2021-06-19] MEDS: Cyclobenzaprine 10 MG Tab PO SCH (20:36)
[2021-06-19] MEDS: Zolpidem 5 MG Tab PO PRN (20:40)
[2021-06-20] MEDS: methylPREDNISolone Sodium Succinate 40 MG/1 ML SDV IVPUSH SCH ×3 (01:04→17:57)
[2021-06-20] MEDS: Albuterol/Ipratropium 3.0-0.5 MG/3 ML Neb Soln NEB SCH ×6 (03:57→22:21)
[2021-06-20] MEDS: Pantoprazole 40 MG Tab.CR PO SCH ×2 (06:04→20:56)
[2021-06-20] MEDS: Budesonide 0.5 MG/2 ML Neb Susp NEB SCH ×2 (07:41→18:17)
[2021-06-20] MEDS: DULoxetine 30 MG Cap PO SCH (08:04)
[2021-06-20] MEDS: Losartan 25 MG Tab PO SCH (08:04)
[2021-06-20] MEDS: Oseltamivir 30 MG Cap PO SCH (08:04)
[2021-06-20] MEDS: Furosemide 20 MG/2 ML VIAL IVPUSH SCH ×2 (08:05→13:58)
[2021-06-20] MEDS: Enoxaparin 40 MG/0.4 ML Syringe SUBCUT SCH (08:05)
[2021-06-20] MEDS: CETIRIZINE 10 MG PO SCH (08:06)
[2021-06-20] MEDS: Tiotropium Inhaler 18 MCG Inhalation Powder Cap Kit of 5 INH SCH (08:07)
[2021-06-20] MEDS: Nystatin Topical Powder 30 GM Bottle TOP SCH ×3 (08:08→20:57)
[2021-06-20] MEDS: Sodium Chloride 0.9% 10 ML Syringe FLUSH PRN (08:08)
[2021-06-20] MEDS: ALPRAZolam 0.5 MG Tab PO PRN ×2 (09:27→18:49)
[2021-06-20] MEDS ORDERED: Azithromycin 250 MG Tab PO SCH (12:00)
[2021-06-20] MEDS: cefTRIAXone 1 GM in Sodium Chloride 0.9% 50 ML IV SCH (12:05)
[2021-06-20] MEDS: Zolpidem 5 MG Tab PO PRN (20:56)
[2021-06-20] MEDS: Cyclobenzaprine 10 MG Tab PO SCH (20:57)
[2021-06-20] MEDS: atorvaSTATin 20 MG Tab PO SCH (20:57)
[2021-06-21] MEDS: methylPREDNISolone Sodium Succinate 40 MG/1 ML SDV IVPUSH SCH ×3 (02:22→18:22)
[2021-06-21] MEDS: Albuterol/Ipratropium 3.0-0.5 MG/3 ML Neb Soln NEB SCH ×7 (02:23→23:22)
[2021-06-21] MEDS: Pantoprazole 40 MG Tab.CR PO SCH ×2 (05:16→21:38)
[2021-06-21] MEDS: Budesonide 0.5 MG/2 ML Neb Susp NEB SCH ×2 (07:26→17:49)
[2021-06-21] MEDS: DULoxetine 30 MG Cap PO SCH (08:15)
[2021-06-21] MEDS: ALPRAZolam 0.5 MG Tab PO PRN (08:15)
[2021-06-21] MEDS: Losartan 25 MG Tab PO SCH (08:16)
[2021-06-21] MEDS: Furosemide 20 MG/2 ML VIAL IVPUSH SCH ×2 (08:17→14:31)
[2021-06-21] MEDS: CETIRIZINE 10 MG PO SCH (08:21)
[2021-06-21] MEDS: Nystatin Topical Powder 30 GM Bottle TOP SCH ×3 (08:21→21:39)
[2021-06-21] MEDS: Tiotropium Inhaler 18 MCG Inhalation Powder Cap Kit of 5 INH SCH (08:22)
[2021-06-21] MEDS: Enoxaparin 40 MG/0.4 ML Syringe SUBCUT SCH (08:23)
[2021-06-21] MEDS: cefTRIAXone 1 GM in Sodium Chloride 0.9% 50 ML IV SCH (11:02)
[2021-06-21] MEDS: Zolpidem 5 MG Tab PO PRN (21:39)
[2021-06-21] MEDS: Cyclobenzaprine 10 MG Tab PO SCH (21:39)
[2021-06-21] MEDS: atorvaSTATin 20 MG Tab PO SCH (21:41)
[2021-06-21] MEDS: Sodium Chloride 0.9% 10 ML Syringe FLUSH PRN ×2 (21:47→23:25)
[2021-06-22] MEDS: Albuterol/Ipratropium 3.0-0.5 MG/3 ML Neb Soln NEB SCH ×5 (02:36→18:38)
[2021-06-22] MEDS: methylPREDNISolone Sodium Succinate 40 MG/1 ML SDV IVPUSH SCH ×2 (02:37→11:09)
[2021-06-22] MEDS: Sodium Chloride 0.9% 10 ML Syringe FLUSH PRN (02:37)
[2021-06-22] MEDS: Pantoprazole 40 MG Tab.CR PO SCH ×2 (05:32→20:10)
[2021-06-22 08:46] LABS: ANION GAP 11.5 mEq/L (7-13); CHLORIDE,CL 98 mmol/L (98-107); SODIUM,NA 137 mmol/L (136-145)
[2021-06-22] MEDS: Furosemide 20 MG/2 ML VIAL IVPUSH SCH ×2 (09:11→14:32)
[2021-06-22] MEDS: Enoxaparin 40 MG/0.4 ML Syringe SUBCUT SCH (09:11)
[2021-06-22] MEDS: CETIRIZINE 10 MG PO SCH (09:12)
[2021-06-22] MEDS: DULoxetine 30 MG Cap PO SCH (09:12)
[2021-06-22] MEDS: Tiotropium Inhaler 18 MCG Inhalation Powder Cap Kit of 5 INH SCH (09:13)
[2021-06-22] MEDS: Nystatin Topical Powder 30 GM Bottle TOP SCH ×3 (09:15→20:10)
[2021-06-22] MEDS: Losartan 25 MG Tab PO SCH (09:15)
[2021-06-22] MEDS: Budesonide 0.5 MG/2 ML Neb Susp NEB SCH ×2 (09:27→18:39)
[2021-06-22] MEDS ORDERED: predniSONE 10 MG Tab PO SCH (12:00)
[2021-06-22] MEDS: cefTRIAXone 1 GM in Sodium Chloride 0.9% 50 ML IV SCH (12:39)
[2021-06-22] MEDS: predniSONE 20 MG Tab PO SCH (16:26)
[2021-06-22] MEDS: Magnesium Hydroxide 400 MG/5 ML Susp 30 ML Cup PO PRN (16:26)
[2021-06-22] MEDS: atorvaSTATin 20 MG Tab PO SCH (20:09)
[2021-06-22] MEDS: Cyclobenzaprine 10 MG Tab PO SCH (20:09)
[2021-06-22] MEDS: Zolpidem 5 MG Tab PO PRN (20:10)
[2021-06-23] MEDS: Albuterol/Ipratropium 3.0-0.5 MG/3 ML Neb Soln NEB SCH ×7 (04:26→23:32)
[2021-06-23] MEDS: Budesonide 0.5 MG/2 ML Neb Susp NEB SCH ×2 (06:17→18:37)
[2021-06-23] MEDS: Pantoprazole 40 MG Tab.CR PO SCH ×2 (06:17→21:34)
[2021-06-23 06:52] LABS: ANION GAP 8.6 mEq/L (7-13); CHLORIDE,CL 100 mmol/L (98-107); SODIUM,NA 138 mmol/L (136-145)
[2021-06-23] MEDS: predniSONE 20 MG Tab PO SCH (08:16)
[2021-06-23] MEDS: Magnesium Hydroxide 400 MG/5 ML Susp 30 ML Cup PO PRN (08:17)
[2021-06-23] MEDS: Docusate Sodium 100 MG Cap PO PRN (08:17)
[2021-06-23] MEDS: DULoxetine 30 MG Cap PO SCH (08:17)
[2021-06-23] MEDS: Losartan 25 MG Tab PO SCH (08:17)
[2021-06-23] MEDS: CETIRIZINE 10 MG PO SCH (08:19)
[2021-06-23] MEDS: Tiotropium Inhaler 18 MCG Inhalation Powder Cap Kit of 5 INH SCH (08:19)
[2021-06-23] MEDS: Furosemide 20 MG/2 ML VIAL IVPUSH SCH ×3 (08:21→15:24)
[2021-06-23] MEDS: Nystatin Topical Powder 30 GM Bottle TOP SCH ×3 (08:21→21:34)
[2021-06-23] MEDS: Enoxaparin 40 MG/0.4 ML Syringe SUBCUT SCH (08:21)
[2021-06-23] MEDS: Sodium Chloride 0.9% 10 ML Syringe FLUSH PRN (08:41)
[2021-06-23] MEDS: cefTRIAXone 1 GM in Sodium Chloride 0.9% 50 ML IV SCH (11:00)
[2021-06-23] MEDS: Codeine/guaiFENesin 10-100 MG/5 ML Syrup 5 ML Cup PO PRN ×2 (14:38→18:37)
[2021-06-23] MEDS: Cyclobenzaprine 10 MG Tab PO SCH (21:33)
[2021-06-23] MEDS: Zolpidem 5 MG Tab PO PRN (21:33)
[2021-06-23] MEDS: atorvaSTATin 20 MG Tab PO SCH (21:34)
[2021-06-24] MEDS: Albuterol/Ipratropium 3.0-0.5 MG/3 ML Neb Soln NEB SCH ×4 (03:07→13:52)
[2021-06-24] MEDS: Pantoprazole 40 MG Tab.CR PO SCH (05:44)
[2021-06-24 07:17] LABS: ANION GAP 8.4 mEq/L (7-13); CHLORIDE,CL 101 mmol/L (98-107); SODIUM,NA 139 mmol/L (136-145)
[2021-06-24] MEDS: Budesonide 0.5 MG/2 ML Neb Susp NEB SCH (07:42)
[2021-06-24] MEDS: Furosemide 20 MG/2 ML VIAL IVPUSH SCH ×2 (08:39→13:59)
[2021-06-24] MEDS: Enoxaparin 40 MG/0.4 ML Syringe SUBCUT SCH (08:44)
[2021-06-24] MEDS: Acetaminophen 325 MG Tab PO PRN (08:46)
[2021-06-24] MEDS: Codeine/guaiFENesin 10-100 MG/5 ML Syrup 5 ML Cup PO PRN (08:46)
[2021-06-24] MEDS: DULoxetine 30 MG Cap PO SCH (08:47)
[2021-06-24] MEDS: Losartan 25 MG Tab PO SCH (08:47)
[2021-06-24] MEDS: predniSONE 20 MG Tab PO SCH (08:48)
[2021-06-24] MEDS: CETIRIZINE 10 MG PO SCH (08:49)
[2021-06-24] MEDS: Tiotropium Inhaler 18 MCG Inhalation Powder Cap Kit of 5 INH SCH (08:51)
[2021-06-24] MEDS: Nystatin Topical Powder 30 GM Bottle TOP SCH ×2 (08:52→13:58)
[2021-06-24] MEDS ORDERED: Pneumococcal Polyvalent-23 Vaccine 0.5 ML SDV SUBCUT ONE (10:00)
[2021-06-24] MEDS: cefTRIAXone 1 GM in Sodium Chloride 0.9% 50 ML IV SCH (11:54)
[2021-06-24 12:04] VITALS: BP 131/98; PULSE 80
== END 2021-06-24 15:15 | disposition home or self-care (01) | DRG 193 ==
LOC: DL.ED 09:20 → DL.MS 13:20
PROVIDERS: ADMIT Internal Medicine; ATTEND Internal Medicine
PROC: 3E0234Z Introduction of Serum, Toxoid and Vaccine into Muscle, Percutaneous Approach (ICD-10-PCS; principal; 2021-06-23)
DX: J09.X1 Influenza due to identified novel influenza A virus with pneumonia (principal); J18.9 Pneumonia, unspecified organism; I10 Essential (primary) hypertension; J45.909 Unspecified asthma, uncomplicated; J96.01 Acute respiratory failure with hypoxia; J44.0 Chronic obstructive pulmonary disease with (acute) lower respiratory infection; E87.1 Hypo-osmolality and hyponatremia; M79.7 Fibromyalgia; J10.1 Influenza due to other identified influenza virus with other respiratory manifestations; E66.9 Obesity, unspecified; F17.210 Nicotine dependence, cigarettes, uncomplicated; K21.9 Gastro-esophageal reflux disease without esophagitis; Z20.822 Contact with and (suspected) exposure to COVID-19; E78.00 Pure hypercholesterolemia, unspecified; K57.90 Diverticulosis of intestine, part unspecified, without perforation or abscess without bleeding; M54.2 Cervicalgia; G89.29 Other chronic pain; M19.90 Unspecified osteoarthritis, unspecified site; F41.9 Anxiety disorder, unspecified; F32.A Depression, unspecified; E87.6 Hypokalemia; E83.42 Hypomagnesemia; E87.8 Other disorders of electrolyte and fluid balance, not elsewhere classified; R73.9 Hyperglycemia, unspecified; E78.5 Hyperlipidemia, unspecified; K22.70 Barrett's esophagus without dysplasia; G62.9 Polyneuropathy, unspecified; T38.0X5A Adverse effect of glucocorticoids and synthetic analogues, initial encounter; Z68.38 Body mass index [BMI] 38.0-38.9, adult; Z88.5 Allergy status to narcotic agent; Z88.8 Allergy status to other drugs, medicaments and biological substances; Z79.899 Other long term (current) drug therapy; Z87.442 Personal history of urinary calculi; Z71.6 Tobacco abuse counseling; Z23 Encounter for immunization
CPT/HCPCS: 0240U; 36415; 36600; 71045; 80048; 80053; 80202; 82565; 82803; 82947; 83605; 83735; 83880; 84484; 85025; 85027; 85651; 86140; 87070; 87205; 90732; 94010; 94060; 94640; 94667; 94668; 94762; 99285; 99223; 99232; 99239; A9270-GY; J0456; J0696; J1650; J1940; J2920; J2930; J3370; J3475; J7030; J7050; J7512; J7620-GY; U0002

== ENCOUNTER 2022-07-09 06:50 | Day surgery (SDC) | payer MEDICARE, MEDICAID ==
[~2022-07-09 06:50] MED LIST changes: -Midazolam 1 MG/ML 2 ML SDV ONE; +Sodium Chloride 0.9% 10 ML Syringe FLUSH SCH; -fentaNYL 100 MCG/2 ML SDV ONE
[2022-07-09] MEDS ORDERED: Lactated Ringers 1,000 ML IV SCH (07:30)
[2022-07-09] MEDS ORDERED: Albuterol/Ipratropium 3.0-0.5 MG/3 ML Neb Soln NEB ONE (07:33)
[2022-07-09] MEDS ORDERED: Albuterol/Ipratropium 3.0-0.5 MG/3 ML Neb Soln ONE (07:39)
[2022-07-09] MEDS ORDERED: Lidocaine 1% 30 ML SDV ONE (07:49)
[2022-07-09] MEDS ORDERED: Dexmedetomidine 200 MCG/2 ML SDV ONE (07:49)
[2022-07-09] MEDS ORDERED: Ketamine 500 mg/10 ML MDV ONE (07:54)
[2022-07-09 11:48] VITALS: BP 127/91; PULSE 73
== END 2022-07-09 11:15 | disposition home or self-care (01) ==
LOC: DL.ENDO 06:50
PROVIDERS: ATTEND Internal Medicine Gastroenterology
DX: K22.70 Barrett's esophagus without dysplasia (principal); K20.90 Esophagitis, unspecified without bleeding; I10 Essential (primary) hypertension; E78.5 Hyperlipidemia, unspecified; E66.9 Obesity, unspecified; E11.42 Type 2 diabetes mellitus with diabetic polyneuropathy; K21.9 Gastro-esophageal reflux disease without esophagitis; M19.90 Unspecified osteoarthritis, unspecified site; J44.9 Chronic obstructive pulmonary disease, unspecified; Z98.890 Other specified postprocedural states; Z87.891 Personal history of nicotine dependence; Z88.6 Allergy status to analgesic agent; Z88.5 Allergy status to narcotic agent
CPT/HCPCS: 00731; 82947; 88305; J7120; J7620-GY